=== PATIENT | male | born 1995 | race Caucasian/White ===

== ENCOUNTER 2019-05-20 10:41 | Emergency (ER) | payer BC, SELFPAY ==
--- NOTE | 2019-05-20 10:48 | ED.GENADULT ---
HPI - General Adult General Chief complaint: Nausea/Vomiting/Diarrhea Stated complaint: Vomiting Time Seen by Provider: 05/20/19 10:49 Source: patient Mode of arrival: ambulatory Limitations: no limitations History of Present Illness HPI narrative: 24-year-old male patient presents to the [facility] with complaints of vomiting that started today. Patient states that he woke up this morning and had some sweats and vomited 1 time. Patient states he is mainly here because he needs a work note for missing work today. Patient states he did have some [place] food last night before going to bed. Patient denies any fevers, ear pain, sore throat, runny nose, stuffy nose. Denies any abdominal pain or diarrhea. Patient denies any chest pain or shortness of breath. Patient states he has been able to keep down food and fluids since his vomiting this morning. Related Data Allergies Allergy/AdvReac Type Severity Reaction Status Date / Time No Known Allergies Allergy Verified 02/25/19 12:35 Review of Systems Review of Systems: Narrative: CONSTITUTIONAL: Denies fever, chills, or sweats. EYES: Denies visual changes, redness, or discharge. ENT: Denies rhinorrhea, congestion, sore throat, or otalgia. CARDIOVASCULAR: Denies chest pain, palpitations, or edema. RESPIRATORY: Denies cough or dyspnea. GASTROINTESTINAL: Denies abdominal pain, nausea, positive vomiting, denies diarrhea. GENITOURINARY: Denies dysuria or hematuria. SKIN: Denies rash or itching. MUSCULOSKELETAL: Denies back pain, joint pain, or myalgia. NEUROLOGIC: Denies headache, numbness, or weakness. PSYCHIATRIC: Denies anxiety or depression. PMFSH Family History Family History Other Family history of seizure disorder Social History Social History Smoking status: Never smoker Alcohol intake: never Comments At the time of my signature I agree with nursing past medical history, surgical, social, and family history. There is no relevant family history pertinent to the presenting complaint. Exam Narrative: Exam Narrative: GENERAL: Well-appearing, well-nourished, and in no acute distress. HEAD: Normocephalic, atraumatic. EYES: PERRLA and EOMI. ENT: Nares clear, no rhinorrhea or epistaxis. Mucous membranes moist. Unable to assess bilateral TMs due to cerumen impaction. Posterior pharynx no erythema, tonsil enlargement, exudates or lesions present. NECK: Supple. No lymphadenopathy CHEST: Clear to auscultation. No respiratory distress. HEART: Regular rate and rhythm. No murmur heard. Normal peripheral pulses. ABDOMEN: Soft, flat, nondistended. No guarding, rebound tenderness, or rigid. No pulsatilla masses. Bowel sounds present in all four quadrants. No organomegaly. Negative Lorenzo?s sign. No periumbicial tenderness. No Supra public tenderness or distension. Good femoral pulses bilaterally. No hernia noted. No scars or surface trauma. EXTREMITIES: Normal range of motion. No edema. SKIN: Warm, dry, no rash. NEURO: No focal deficits. Alert and oriented x3. Course Vital Signs Vital signs: Vital Signs Temperature 37.2 C 05/20/19 10:51 Pulse Rate 112 H 05/20/19 10:51 Respiratory Rate 16 05/20/19 10:51 Blood Pressure 139/85 05/20/19 10:51 Pulse Oximetry 100 05/20/19 10:51 Temperature 37.2 C 05/20/19 10:51 Pulse Rate 112 H 05/20/19 10:51 Respiratory Rate 16 05/20/19 10:51 Blood Pressure 139/85 05/20/19 10:51 Pulse Oximetry 100 05/20/19 10:51 Vital signs reviewed. Medical Decision Making Differential Diagnosis Differential Diagnosis: Differential diagnosis: Appendicitis, ovarian torsion, gallbladder disease, ovarian torsion, pancreatitis, lower lobe pneumonia,AAA, AMI or ACS, DKA, diverticulitis. Discussed with patient that if he develops worsening symptoms such as fevers, continued vomiting, abdominal pain or diarrhea that I would
[2019-05-20 10:51] VITALS: BP 139/85; PULSE 112; RESP 16; TEMP 37.2; O2SAT 100
== END 2019-05-20 11:16 | disposition home or self-care (01) ==
PROVIDERS: Emergency Provider Nurse Practitioner Family
DX: R11.11 Vomiting without nausea (principal)
CPT/HCPCS: 99211; G0463

== ENCOUNTER 2020-06-14 09:27 | Emergency (ER) | payer BC, SELFPAY ==
[2020-06-14 09:58] VITALS: BP 126/73; PULSE 108; RESP 16; TEMP 36.7; O2SAT 99
--- NOTE | 2020-06-14 10:17 | ED.URI ---
HPI - URI/Sore Throat General Chief Complaint: Upper Respiratory Infection Stated Complaint: sor throat Time Seen by Provider: 06/14/20 10:17 Source: patient and RN notes reviewed Mode of arrival: ambulatory Limitations: no limitations History of Present Illness HPI Narrative: 25-year-old male presents with concern for sore throat that started yesterday. He denies nasal congestion, rhinorrhea, ear pain, nausea, vomiting, diarrhea, cough, shortness of breath, body aches, chills, fever, sweats. Denies any known sick contacts. Denies any intervention for symptoms. MD elicited complaint: sore throat Related Data Allergies Allergy/AdvReac Type Severity Reaction Status Date / Time No Known Allergies Allergy Verified 02/25/19 12:35 Review of Systems Review of Systems: Narrative: CONSTITUTIONAL: Denies malaise, chills, sweats, or fever. EYES: Denies visual changes, redness, or discharge. ENT: Denies rhinorrhea, congestion, sinus pain, otalgia. Reports sore throat. CARDIOVASCULAR: Denies chest pain, palpitations, or edema. RESPIRATORY: Denies cough or dyspnea. GASTROINTESTINAL: Denies abdominal pain, nausea, vomiting, diarrhea SKIN: Denies rash or itching. MUSCULOSKELETAL: Denies myalgia. NEUROLOGIC: Denies headache. All systems reviewed & are unremarkable except as noted in HPI and below PMFSH Family History Family History Other Family history of seizure disorder Social History Social History Smoking status: Never smoker Alcohol intake: never Comments At time of signature, agree with nursing past medical, surgical, social and family history. There is no relevant family history pertinent to the presenting complaint Exam Narrative: Exam Narrative: GENERAL: Well-appearing, well-nourished, and in no acute distress. HEAD: Normocephalic EYES: PERRLA, conjunctivae and sclera injected bilaterally ENT: Nares clear, turbinates erythematous, clear discharge. Mucous membranes moist. TM not visible due to excessive cerumen bilaterally; no tragal tenderness. Oropharynx erythematous without lesions. Tonsils enlarged and without exudate, no drooling, no hoarseness, no trismus, uvula midline. NECK: Supple. No lymphadenopathy CHEST: Clear to auscultation, breath sounds equal. No wheezing, rhonchi, rales, or stridor. No respiratory distress, speaks in full sentences. HEART: Regular rate and rhythm. No murmur heard. SKIN: Warm, dry, no rash. NEURO: Alert and oriented x3. PSYCH: Normal mood and affect Course Course Emergency Course: Patient is aware of diagnosis, understands and agrees to treatment plan. Anticipatory guidance given. Patient agrees to follow-up as directed and is aware of reasons to seek care at the emergency department. Portions of this record may have been created with voice recognition software Vital Signs Vital signs: Vital Signs Temperature 98.1 F 06/14/20 09:58 Pulse Rate 108 H 06/14/20 09:58 Respiratory Rate 16 06/14/20 09:58 Blood Pressure 126/73 06/14/20 09:58 Pulse Oximetry 99 06/14/20 09:58 Temperature 98.1 F 06/14/20 09:58 Pulse Rate 108 H 06/14/20 09:58 Respiratory Rate 16 06/14/20 09:58 Blood Pressure 126/73 06/14/20 09:58 Pulse Oximetry 99 06/14/20 09:58 Reviewed. MDM - URI/Sore Throat MDM Narrative Medical decision making narrative: Differential diagnosis considered: Garner virus, strep pharyngitis, allergic rhinitis, upper respiratory tract infection, sinusitis, rhinosinusitis, nasopharyngitis. viral pharyngitis, otitis media, otitis externa, pneumonia, bronchitis, viral cough syndrome, viral syndrome, and influenza. Exam findings show no acute concerns or changes; patient is non-toxic appearing and is in no distress. Patient is appropriate for outpatient treatment and follow-up. Lab Data Labs: Strep Screen Presumptive Negative
[2020-06-15 19:22] LABS: SARS-CoV-2 RNA PCR Negative
== END 2020-06-14 10:34 | disposition home or self-care (01) ==
PROVIDERS: Emergency Provider Nurse Practitioner; PCP Emergency Medicine
DX: J06.9 Acute upper respiratory infection, unspecified (principal); H61.23 Impacted cerumen, bilateral; Z20.822 Contact with and (suspected) exposure to COVID-19
CPT/HCPCS: 87081; 87880; 99213; C9803; G0463; U0003; U0005

== ENCOUNTER 2020-10-27 10:02 | Emergency (ER) | payer BC, SELFPAY ==
[2020-10-27 10:13] VITALS: BP 121/73; PULSE 67; RESP 16; TEMP 36.3; O2SAT 100
--- NOTE | 2020-10-27 10:36 | ED.WOUNDLAC ---
HPI - Wound/Laceration General Chief Complaint: Wound/Laceration Stated Complaint: remove stitches Time Seen by Provider: 10/27/20 10:36 Source: patient Mode of arrival: ambulatory Limitations: no limitations History of Present Illness HPI narrative: Balbir Dominguez is a 25 yo male here for suture removal. Patient had 10 sutures placed in his chin 7 days ago at the end of a full trip where he was intoxicated; [place] dressings to apply till he got to the hospital. He states he been cleaning with soap and water but there is a slight odor to the laceration and while it is well approximated still oozing serous fluid. He is about to complete his Bactrim that was given to him at [place] emergency room where the sutures were placed Related Data Allergies Allergy/AdvReac Type Severity Reaction Status Date / Time No Known Allergies Allergy Verified 02/25/19 12:35 Review of Systems Review of Systems: CONSTITUTIONAL: Denies fever, chills, sweats. EYES: Denies visual changes, redness, discharge. ENT: Denies rhinorrhea, congestion, sore throat, otalgia. CARDIOVASCULAR: Denies chest pain, palpitations, edema. RESPIRATORY: Denies dyspnea, wheezing, cough GASTROINTESTINAL: Denies abdominal pain, nausea, vomiting, diarrhea. GENITOURINARY: Denies dysuria, hematuria, abnormal discharge SKIN: Denies rash or itching. 10 sutures to chin-here for suture removal NEUROLOGIC: Denies numbness, or focal weakness. PSYCHIATRIC: Denies anxiety or depression. PMFSH Past Medical History Medical History No acute medical problems Family History Family History (Updated 10/27/20 @ 10:55 by Patience Sanders CNP) Mother Multiple sclerosis Other Family history of seizure disorder Social History Social History (Updated 10/27/20 @ 10:55 by Patience Sanders CNP) Smoking status: Never smoker Alcohol intake: current Gender identity (if verbalized by the patient): Male Comments At time of signature, I agree with nursing past medical, surgical, social and family history. There is no relevant family history pertinent to the presenting complaint. Exam Narrative: GENERAL: This is a well-nourished, well-developed patient, in mild distress. HEAD: normocephalic, atraumatic. EYES: Sclera clear/white. Vision is grossly intact. EARS: External ears normal, . Hearing grossly intact. NOSE: External nose normal without nasal discharge, nares without redness, no rhinorrhea. THROAT: Mucous membranes moist, NECK: Neck supple, non-tender CARDIOVASCULAR: Regular rate and rhythm without murmurs, gallops, or rubs. RESPIRATORY: Clear to auscultation. Breath sounds equal bilaterally. No wheezes, rales, or rhonchi. GASTROINTESTINAL: Abdomen soft, SKIN: warm, intact with no suspicious lesions or rash, good texture and turgor. 10 sutures to jagged chin laceration. Mild oozing and redness persists although good approximation; mild odor to laceration NEURO: awake, alert, and oriented to person, place and time. There were no obvious focal neurologic abnormalities. Steady gait EXTREMITIES: Normal range of motion. 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
--- NOTE | 2020-10-27 10:54 | PC.NURSE ---
moved to rm 1 for suture removal.
== END 2020-10-27 11:04 | disposition home or self-care (01) ==
PROVIDERS: Emergency Provider Nurse Practitioner
DX: S01.81XD Laceration without foreign body of other part of head, subsequent encounter (principal); X58.XXXA Exposure to other specified factors, initial encounter
CPT/HCPCS: 99213; G0463

== ENCOUNTER 2021-08-06 14:24 | Emergency (ER) | payer BC, SELFPAY ==
[2021-08-06 14:31] VITALS: BP 130/77; PULSE 77; RESP 16; TEMP 36.9; O2SAT 100
--- NOTE | 2021-08-06 14:56 | ED.EAR ---
HPI - Ear Problem General Chief complaint: Ear Stated complaint: Ear Pain Time Seen by Provider: 08/06/21 14:57 Source: patient Mode of arrival: ambulatory Limitations: no limitations History of Present Illness HPI Narrative: 26-year-old male presented for complaint of 4-day history of right ear feeling muffled and ringing. Left ear started with a muffled sound yesterday. He denies associated pain, dizziness, sinus congestion or pressure. He has used earwax drops for the last 2 days without significant relief. MD Complaint: ear pain Related Data Home Medications Medication Instructions Recorded Confirmed No Home Medications 08/06/21 08/06/21 Allergies Allergy/AdvReac Type Severity Reaction Status Date / Time No Known Allergies Allergy Verified 08/06/21 14:29 Review of Systems Review of Systems: CONSTITUTIONAL: Denies malaise, chills, or fever. EYES: Denies visual changes, redness, or discharge. ENT: Denies rhinorrhea, congestion, sinus pain, and sore throat. Reports ear ringing CARDIOVASCULAR: Denies chest pain, palpitations, or edema. RESPIRATORY: Denies cough or dyspnea. GASTROINTESTINAL: Denies abdominal pain, nausea, vomiting, diarrhea SKIN: Denies rash or itching. MUSCULOSKELETAL: Denies myalgia. NEUROLOGIC: Denies headache. All systems reviewed & are unremarkable except as noted in HPI and below PMFSH Past Medical History Medical History No acute medical problems Family History Family History Mother Multiple sclerosis Other Family history of seizure disorder Social History Social History Smoking status: Never smoker Alcohol intake: current Gender identity (if verbalized by the patient): Male Comments At time of signature, agree with nursing past medical, surgical, social and family history. There is no relevant family history pertinent to the presenting complaint Exam Narrative: GENERAL: Well-appearing HEAD: Normocephalic EYES: conjunctivae clear ENT: Nares clear. Mucous membranes moist. TMs unable to visualize bilaterally due to cerumen impaction; no tragal tenderness. Oropharynx not erythematous without lesions. Tonsils not enlarged and without exudate, no drooling, no hoarseness, no trismus, uvula midline. NECK: Supple. No lymphadenopathy CHEST: Clear to auscultation, breath sounds equal. HEART: Regular rate and rhythm. No murmur heard. SKIN: Warm, dry, no rash. NEURO: Alert and oriented x3. PSYCH: Normal mood and affect Course Course Emergency Course: Patient is aware of diagnosis, understands and agrees to treatment plan. Anticipatory guidance given. Patient agrees to follow-up as directed and is aware of reasons to seek care at the emergency department. Portions of this record may have been created with voice recognition software Level of Care: Express Care Visit Vital Signs Vital signs: Vital Signs Temperature 98.5 F 08/06/21 14:31 Pulse Rate 77 08/06/21 14:31 Respiratory Rate 16 08/06/21 14:31 Blood Pressure 130/77 08/06/21 14:31 Pulse Oximetry 100 08/06/21 14:31 Oxygen Delivery Room Air 08/06/21 14:31 Temperature 98.5 F 08/06/21 14:31 Pulse Rate 77 08/06/21 14:31 Respiratory Rate 16 08/06/21 14:31 Blood Pressure 130/77 08/06/21 14:31 Pulse Oximetry 100 08/06/21 14:31 Oxygen Delivery Room Air 08/06/21 14:31 Reviewed Procedures Ear Wax Removal Both Ears: Ear Wax Removal Date: 08/06/21 Cerumenolytic Used: other (Hydrogen peroxide and warm water) Results: Re-examined: some cerumen remains Ear Canal Exam: atraumatic Patient Tolerated Procedure: well Complications: no problems Technique: ear canal irrigated and ear canal curetted Additional Comments: large amount of cerumen removed bilaterally,
[2021-08-06] MEDS: HYDROGEN PEROXIDE 3% SOLN(*SP) 473 ML BOTTLE 50 ML IRRIGATION (15:29)
== END 2021-08-06 15:32 | disposition home or self-care (01) ==
PROVIDERS: Emergency Provider Nurse Practitioner Family; PCP Emergency Medicine
DX: H61.23 Impacted cerumen, bilateral (principal)
CPT/HCPCS: 69210; 99212; A9270; G0463